=== PATIENT | female | born 1945 | race Two or more races ===

== ENCOUNTER 2018-09-08 11:33 | Emergency (ER) | payer OTHER, MEDICAID ==
[~2018-09-08] VITALS: Ht 162.6 cm; Wt 68.9 kg
[2018-09-08 12:03] LABS: Basophils # (auto) 0 uL; Basophils % (auto) 0.2 % (0.0-2.0); Eosinophils # (auto) 0 uL; Eosinophils % (auto) 0.5 % (0.0-7.0); Hematocrit 38.5 % (36.0-46.0); Hemoglobin 12.9 g/dL (12.2-16.2); Lymphocytes # (auto) 0.7 uL; Lymphocytes % (auto) 8.1 % (10.0-50.0); Mean Corpuscular Hemoglobin 29.3 pg (28.0-32.0); Mean Corpuscular Hgb Conc. 33.4 g/dL (32.0-36.0); Mean Corpuscular Volume 87.7 fL (80.0-100.0); Monocytes # (auto) 0.7 uL; Monocytes % (auto) 8.7 % (0.0-12.0); Neutrophils # (auto) 6.8 uL; Neutrophils % (auto) 82.5 % (37.0-80.0); Platelet Count (auto) 254 10^3/uL (140-450); Red Blood Cells 4.39 10^6/uL (4.0-5.20); Red Cell Distribution Width 13.9 % (11.8-14.3); White Blood Cell 8.2 10^3/uL (4.4-10.8)
[2018-09-08 12:27] LABS: Albumin 3.4 g/dL (3.4-5.0); Anion Gap 7 (5-15); Carbon Dioxide 26 mmol/L (21-32); Chloride 102 mmol/L (98-107); Glucose 240 mg/dL (74-106); Potassium 3.8 mmol/L (3.5-5.1); Sodium 135 mmol/L (136-145)
[2018-09-08] MEDS ORDERED: ONDANSETRON ODT 4 MG TAB PO ONE ×2 (12:33→12:45)
[2018-09-08 12:34] LABS: Alanine Aminotransferase 30 U/L (13-56); Alkaline Phosphatase 94 U/L (45-117); Aspartate Aminotransferase 23 U/L (15-37); BUN/Creatinine Ratio 18.2; Bilirubin, Total 0.7 mg/dL (0.2-1.0); Blood Urea Nitrogen 14 mg/dL (7-18); GFR African American 95 mL/min; GFR Non-African American 79 mL/min; Total Protein 6.8 g/dL (6.4-8.2)
[2018-09-08] MEDS ORDERED: SODIUM CHLORIDE 0.9% 1,000 ML IVB ONE (12:58)
[2018-09-08 13:51] LABS: Magnesium 1.9 mg/dL (1.6-2.6)
[2018-09-08 15:42] VITALS: BP 121/69
== END 2018-09-08 15:49 | disposition home or self-care (01) ==
LOC: ER 11:33
DX: K52.9 Noninfective gastroenteritis and colitis, unspecified (principal); K57.90 Diverticulosis of intestine, part unspecified, without perforation or abscess without bleeding; E11.9 Type 2 diabetes mellitus without complications; I10 Essential (primary) hypertension
CPT/HCPCS: 36415; 74176; 80053; 82150; 82962; 83690; 83735; 84484; 85025; 93005; 94761; 99284; Q0162